=== PATIENT | male | born 1955 | race Caucasian/White ===

== ENCOUNTER 2023-09-29 11:24 | Outpatient (RCR) | payer OTHER, SELFPAY | END 2023-09-29 23:59 | disposition home or self-care (01) | LOC: RPT 11:24 | PROVIDERS: ATTENDING PHYSICIAN Specialist | DX: N39.3 Stress incontinence (female) (male) (principal); N99.89 Other postprocedural complications and disorders of genitourinary system; Z73.6 Limitation of activities due to disability | CPT/HCPCS: 97110; 97162 ==

== ENCOUNTER 2023-11-13 10:53 | Outpatient (RCR) | payer OTHER, SELFPAY | END 2023-11-13 23:59 | disposition home or self-care (01) | LOC: RPT 10:53 | PROVIDERS: ATTENDING PHYSICIAN Specialist | DX: N39.3 Stress incontinence (female) (male) (principal); Z73.6 Limitation of activities due to disability | CPT/HCPCS: 97014; 97110; 97112; 97140; 97530 ==

== ENCOUNTER 2023-12-11 10:52 | Outpatient (RCR) | payer OTHER, SELFPAY | END 2023-12-11 23:59 | disposition home or self-care (01) | LOC: RPT 10:52 | PROVIDERS: ATTENDING PHYSICIAN Specialist | DX: N39.3 Stress incontinence (female) (male) (principal); Z73.6 Limitation of activities due to disability; N99.89 Other postprocedural complications and disorders of genitourinary system | CPT/HCPCS: 97014; 97110; 97112; 97140; 97530 ==

== ENCOUNTER 2024-01-08 11:46 | Outpatient (RCR) | payer OTHER, SELFPAY | END 2024-01-08 23:59 | disposition home or self-care (01) | LOC: RPT 11:46 | PROVIDERS: ATTENDING PHYSICIAN Specialist | DX: N39.3 Stress incontinence (female) (male) (principal); Z73.6 Limitation of activities due to disability; N99.89 Other postprocedural complications and disorders of genitourinary system | CPT/HCPCS: 97014; 97110; 97112; 97530 ==

== ENCOUNTER 2024-01-29 11:03 | Outpatient (RCR) | payer OTHER, SELFPAY | END 2024-01-29 23:59 | disposition home or self-care (01) | LOC: RPT 11:03 | PROVIDERS: ATTENDING PHYSICIAN Specialist | DX: N39.3 Stress incontinence (female) (male) (principal); Z73.6 Limitation of activities due to disability | CPT/HCPCS: 97110; 97112; 97530 ==

== ENCOUNTER 2024-03-11 10:53 | Outpatient (RCR) | payer OTHER, SELFPAY | END 2024-03-11 23:59 | disposition home or self-care (01) | LOC: RPT 10:53 | PROVIDERS: ATTENDING PHYSICIAN Specialist | DX: N39.3 Stress incontinence (female) (male) (principal); Z73.6 Limitation of activities due to disability; N99.89 Other postprocedural complications and disorders of genitourinary system | CPT/HCPCS: 97112; 97530 ==

== ENCOUNTER → 2024-10-06 14:56 | Outpatient (REF) | payer OTHER, SELFPAY | LOC: RCS 14:56 | PROVIDERS: ATTENDING PHYSICIAN Internal Medicine Cardiovascular Disease | DX: I25.10 Atherosclerotic heart disease of native coronary artery without angina pectoris (principal); R06.09 Other forms of dyspnea | CPT/HCPCS: 93306 ==

== ENCOUNTER → 2024-10-12 07:38 | Outpatient (REF) | payer OTHER, SELFPAY | LOC: PET 07:38 | PROVIDERS: ATTENDING PHYSICIAN Internal Medicine Cardiovascular Disease | DX: R06.09 Other forms of dyspnea (principal); I25.10 Atherosclerotic heart disease of native coronary artery without angina pectoris | CPT/HCPCS: 78431; A9555; J2785 ==

== ENCOUNTER → 2024-10-20 12:05 | Outpatient (REF) | payer OTHER, SELFPAY | LOC: RAD 12:05 | PROVIDERS: ATTENDING PHYSICIAN Internal Medicine Cardiovascular Disease | DX: Z87.891 Personal history of nicotine dependence (principal); Z72.0 Tobacco use | CPT/HCPCS: 71271 ==

== ENCOUNTER → 2025-04-07 09:11 | Outpatient (REF) | payer OTHER, SELFPAY | LOC: RAD 09:11 | PROVIDERS: ATTENDING PHYSICIAN Internal Medicine Cardiovascular Disease; FAMILY PHYSICIAN Family Medicine | DX: M79.604 Pain in right leg (principal); M79.605 Pain in left leg | CPT/HCPCS: 93922; 93925 ==